=== PATIENT | male | born 1945 | race Hispanic/Latino ===

== ENCOUNTER 2018-11-27 12:22 | Inpatient (IN) | payer MEDICARE ==
[2018-11-27 12:40] VITALS: BMI 22.5
[2018-11-27] MEDS ORDERED: Sodium Chloride 0.9% 500 ML IV STA (13:16)
--- NOTE | 2018-11-27 13:17 | ED PDOC ---
Arrival/HPI - General Chief Complaint: Male Genitourinary Time Seen by Provider: 11/27/18 12:57 Historian: Patient - History of Present Illness Narrative History of Present Illness (Text): 11/27/18 13:18 73 year old male, with past medical history of AAA, presents to the ED for evaluation of polyuria since last . Patient states he has been experiencing increased urination throughout the day, associated with mild abdomi nal pain. Patient denies any fevers, chills, headache, dizziness, chest pain, shortness of breath, dyspnea on exertion, cough, diaphoresis, dysuria, hematuria, nausea, vomiting, diarrhea, back pain, neck pain, or any other complaints. Time/Duration: < week Symptom Onset: Gradual Symptom Course: Unchanged Activities at Onset: Light Context: Home Past Medical History - Provider Review Nursing Documentation Reviewed: Yes - Infectious Disease Hx of Infectious Diseases: None - Tetanus Immunization Tetanus Immunization: Unknown - Gastrointestinal Other/Comment: AAA - Psychiatric Hx Depression: No Hx Emotional Abuse: No Hx Physical Abuse: No Hx Substance Use: No - Surgical History Hx Cholecystectomy: Yes Hx Tonsillectomy: Yes - Anesthesia Hx Anesthesia: Yes Hx Anesthesia Reactions: No Hx Malignant Hyperthermia: No - Suicidal Assessment Feels Threatened In Home Enviroment: No Family/Social History - Physician Review Nursing Documentation Reviewed: Yes Family/Social History: Unknown Family HX Smoking Status: Never Smoked Hx Alcohol Use: Yes Frequency of alcohol use: Socially Hx Substance Use: No Hx Substance Use Treatment: No Allergies/Home Meds Allergies/Adverse Reactions: Allergies No Known Allergies Allergy (Verified 11/27/18 12:40) Home Medications: Home Meds Medication Instructions Recorded Confirmed Tamsulosin [Flomax] 1 cap PO DAILY 11/27/18 11/27/18 Review of Systems - Physician Review All systems were reviewed & negative as marked: Yes - Review of Systems Constitutional: absent: Fevers Eyes: absent: Vision Changes Respiratory: absent: SOB, Cough Cardiovascular: absent: Chest Pain Gastrointestinal: Abdominal Pain. absent: Diarrhea, Nausea, Vomiting Genitourinary Male: absent: Dysuria, Hematuria, Urinary Output Changes Musculoskeletal: absent: Back Pain, Neck Pain Skin: absent: Rash Neurological: absent: Headache, Dizziness, Focal Weakness Endocrine: Polyuria. absent: Diaphoresis Psychiatric: absent: Anxiety Physical Exam - Physical Exam Narrative Physical Exam (Text): 11/27/18 13:22 Gen: VS reviewed, alert, well developed, well nourished, nontoxic, mild distress. ENT: normal pharynx. Eye: EOMI, PERRL. Neck: no JVD, supple, no adenopathy. CV: regular rate, regular rhythm, no rubs, no murmur, no gallops, S1, S2, pulses equal and strong. Pulm: no distress, clear to auscultation, no wheeze, no rhonchi, breath sounds equal, no rales. Abd: soft, nontender, no guarding, no rebound, no rigidity, normal bowel sounds. Mild bilateral CVA tenderness. Ext: no edema. Skin: good color, no rash, no cyanosis. Psych: responds appropriately to questions, normal affect. Neuro: oriented x 3, CN2-12 intact grossly, motor intact, sensation intact. Vital Signs Reviewed: Yes Vital Signs Temp Pulse Resp BP Pulse Ox 11/27/18 12:43 97.4 F L 81 18 131/80 96 Temperature: Afebrile Blood Pressure: Normal Pulse: Regular Respiratory Rate: Normal Appearance: Positive for: Well-Appearing, Non-Toxic, Comfortable Pain Distress: Mild Mental Status: Positive for: Alert and Oriented X 3 Medical Decision Making ED Course and Treatment: 11/27/18 13:16 Impression: 73 year old male presents to the ED for evaluation of polyuria. Plan: -- CT Abdomen/Pelvis -- Labs -- IV Fluids -- Urine Culture -- Urinalysis -- Reassess and disposition Prior Visits: Notes and results from previous visits were reviewed. Progress Notes: 11/27/18 15:[address] serrato to this service. patient to be admitted for syncopal event as reported by dr. serrato. patient reports the other day felt dizzy/lightheaded, had a fall to the ground and had difficulty getting up,no head trauma. patient denies any chest pain, no dyspnea, acute abdominal pain. the flank pain appreciated on physical exam likely from bilateral hydronephrosis caused by urine retention. consult to urology dr. brent pérez for urine retention - RAD Interpretation Narrative RAD Interpretations (Text): 11/27/18 14:56 CT Abdomen/Pelvis reviewed by radiologist, shows: FINDINGS: LOWER THORAX: There is an infiltrate in the periphery of the right lower lobe LIVER: Unremarkable. No gross lesion or ductal dilatation. GALLBLADDER AND BILE DUCTS: Gallbladder removed PANCREAS: Unremarkable. No gross lesion or ductal dilatation. SPLEEN: Unremarkable. ADRENALS: Unremarkable. No mass. KIDNEYS AND URETERS: Unremarkable. No hydronephrosis. No solid mass. VASCULATURE: Unremarkable. No aortic aneurysm. No aortic atherosclerotic calcification or mural plaque present. BOWEL: Unremarkable. No obstruction. No gross mural thickening. APPENDIX: Unremarkable. Normal appendix. PERITONEUM: Unremarkable. No free fluid. No free air. LYMPH NODES: Unremarkable. No enlarged lymph nodes. BLADDER: There is severe thickening of the bladder. Both ureters are dilated especially on the right measuring 19 mm in diameter distally. There is severe right-sided hydronephrosis and mild left-sided hydronephrosis. REPRODUCTIVE: The prostate is enlarged measuring 71 mm in diameter. BONES: No acute fracture. OTHER FINDINGS: None. IMPRESSION: Severe hydronephrosis right greater than left. No evidence of ureteral stone. Severe thickening of the bladder. Severely enlarged prostate Radiology Orders: 11/27/18 13:16 ABDOMEN & PELVIS [ABD & PELVIS W/O PO OR IV CONT] [CT] [employer] Support Specialist: Radiologist - EKG Interpretation EKG Interpretation (Text): 11/27/18 18:42 EKG shows NSR at 78 BPM, no specific intraventricular block, no acute ST/T wave abnormalities. Interpreted by me. Interpreted by ED Physician: Yes Type: 12 lead EKG - Medication Orders Current Medication Orders: Sodium Chloride (Sodium Chloride 0.9%) 500 mls @ 999 mls/hr IV .Q31M STA Stop: 11/27/18 13:46 Procedures - Time-Out Type of Procedure: barraza catheter insertion Correct Procedure: Yes Physician Name: tyson - Additional Procedures Progress: a [address] was placed. sterile technique, anesthetized with viscous lidocaine, the catheter advanced easily past the urethral meatus, some resistance was met but the catheter advanced smoothly beyond the expected level of the prostate, good urine flow observed. at the level of the resistance there was some blood return within the urethra and in the urine. there was no persistent pain during the procedure or while the balloon was inflated. patient tolerated procedure well. - Scribe Statement The provider has reviewed the documentation as recorded by the Scribe Krissy Musa. All medical record entries made by the Scribe were at my direction and personally dictated by me. I have reviewed the chart and agree that the record accurately reflects my personal performance of the history, physical exam, medical decision making, and the department course for this patient. I have also personally directed, reviewed, and agree with the discharge instructions and disposition. Disposition/Present on Arrival - Present on Arrival Any Indicators Present on Arrival: No History of DVT/PE: No History of Uncontrolled Diabetes: No Urinary Catheter: No History of Decub. Ulcer: No History Surgical Site Infection Following: None - Disposition Have Diagnosis and Disposition been Completed?: Yes Diagnosis: Urine retention, Syncope, Pyelonephritis Disposition: HOSPITALIZED Disposition Time: 15:46 Patient Plan: Admission Patient Problems: Current Active Problems Problem Status Onset Urine retention Acute Syncope Acute Pyelonephritis Acute Condition: GUARDED
[2018-11-27 14:19] LABS: BASO # 0.01 K/mm3 (0.0-2.0); BASO % 0.1 % (0.0-3.0); HEMOGLOBIN 13.5 g/dL (14.0-18.0); LYMPH # 1.4 (1.2-3.4); MEAN CELL VOLUME 91.6 fl (80.0-105.0); MEAN CORPUSCULAR HEMOGLOBIN 30.8 pg (25.0-35.0); MEAN CORPUSCULAR HGB CONC 33.6 g/dl (31.0-37.0); MEAN PLATELET VOLUME 10.1 fl (7.0-11.0); MONO # 0.8 (0.1-0.6); MONO % 8.5 % (1.0-6.0); RBC 4.39 10^6/uL (3.5-6.1); WHITE BLOOD COUNT 9.2 10^3/uL (4.5-11.0)
[2018-11-27 14:25] LABS: ALB/GLOB RATIO 1.2 (1.1-1.8); ALBUMIN 3.8 g/dL (3.0-4.8); CALCIUM 9.3 mg/dL (8.4-10.5)
--- NOTE | 2018-11-27 14:54 | CT ---
Date of service: 11/27/2018 PROCEDURE: CT Abdomen and Pelvis without intravenous contrast HISTORY: flank pain COMPARISON: None. TECHNIQUE: Without contrast.. Contrast dose: Radiation dose: Total exam DLP = 620.34 mGy-cm. This CT exam was performed using one or more of the following dose reduction techniques: Automated exposure control, adjustment of the mA and/or kV according to patient size, and/or use of iterative reconstruction technique. FINDINGS: LOWER THORAX: There is an infiltrate in the periphery of the right lower lobe LIVER: Unremarkable. No gross lesion or ductal dilatation. GALLBLADDER AND BILE DUCTS: Gallbladder removed PANCREAS: Unremarkable. No gross lesion or ductal dilatation. SPLEEN: Unremarkable. ADRENALS: Unremarkable. No mass. KIDNEYS AND URETERS: Unremarkable. No hydronephrosis. No solid mass. VASCULATURE: Unremarkable. No aortic aneurysm. No aortic atherosclerotic calcification or mural plaque present. BOWEL: Unremarkable. No obstruction. No gross mural thickening. APPENDIX: Unremarkable. Normal appendix. PERITONEUM: Unremarkable. No free fluid. No free air. LYMPH NODES: Unremarkable. No enlarged lymph nodes. BLADDER: There is severe thickening of the bladder. Both ureters are dilated especially on the right measuring 19 mm in diameter distally. There is severe right-sided hydronephrosis and mild left-sided hydronephrosis. REPRODUCTIVE: The prostate is enlarged measuring 71 mm in diameter. BONES: No acute fracture. OTHER FINDINGS: None. IMPRESSION: Severe hydronephrosis right greater than left. No evidence of ureteral stone. Severe thickening of the bladder. Severely enlarged prostate
[2018-11-27 15:39] LABS: URINE BILIRUBIN NEGATIVE (NEGATIVE); URINE BLOOD LARGE (NEGATIVE); URINE GLUCOSE (UA) NEGATIVE (NEGATIVE); URINE LEUKOCYTE ESTERASE LARGE Leu/uL (NEGATIVE); URINE PROTEIN 100 mg/dL (<30 mg/dL); URINE UROBILINOGEN 0.2 E.U./dL (<1 E.U./dL)
[2018-11-27 15:40] LABS: URINE APPEARANCE CLOUDY (CLEAR); URINE COLOR YELLOW (YELLOW)
[2018-11-27] MEDS ORDERED: Lidocaine 2% Jelly (Uro-Jet) TOP ONE (15:40)
[2018-11-27 15:42] LABS: URINE BACTERIA MANY /hpf; URINE RBC 15 - 20 /hpf (0-2); URINE WBC TNTC /hpf (0-6)
[2018-11-27] MEDS ORDERED: cefTRIAXone 1 GM/100 ML BAG IVPB STA (16:57)
--- NOTE | 2018-11-27 17:53 | CARD ---
APPROVED REPORT Date of service: 11/27/2018 EKG Measurement Heart [id number] AK [id number] [id number] <Conclusion> Normal sinus rhythm Left axis deviation Nonspecific intraventricular block NDSTT abnormalities Abnormal ECG
[2018-11-27] MEDS ORDERED: Lactated Ringer's 1,000 ML IV SCH (21:45)
[2018-11-27] MEDS: Lactated Ringer's 1,000 ML IV SCH ×2 (21:57→23:45)
[2018-11-27] MEDS ORDERED: Influenza Vaccine 60 mcg/0.5 mL SYR (4YR UP) IM ONE (21:59)
[2018-11-27] MEDS ORDERED: Pneumococcal 23-Valent Vaccine IM ONE (21:59)
[2018-11-27] MEDS ORDERED: Ciprofloxacin 400mg/200ml D5W 400 MG/200 ML BAG IVPB SCH (22:00)
[2018-11-27 22:17] LABS: VENOUS BLOOD GAS BASE EXCESS -0.2 mmol/L (0.0-2.0); VENOUS BLOOD GAS PO2 60 mm/Hg (30-55)
[2018-11-27] MEDS ORDERED: Sodium Chloride 0.9% 1,000 ML IV STA (23:17)
[2018-11-27] MEDS: Sodium Chloride 0.9% 1,000 ML IV SCH (23:41)
[2018-11-28 00:04] LABS: HEMOGLOBIN 12.3 g/dL (14.0-18.0); LYMPH # 0.2 (1.2-3.4); LYMPH % 2.9 % (22.0-35.0); MEAN CELL VOLUME 90.3 fl (80.0-105.0); MEAN CORPUSCULAR HEMOGLOBIN 30.6 pg (25.0-35.0); MEAN CORPUSCULAR HGB CONC 33.9 g/dl (31.0-37.0); MEAN PLATELET VOLUME 10.1 fl (7.0-11.0); MONO # 0.3 (0.1-0.6); MONO % 4.1 % (1.0-6.0); PLATELET COUNT 71 10^3/uL (120.0-450.0); RBC 4.02 10^6/uL (3.5-6.1); RED CELL DISTRIBUTION WIDTH 12.8 % (11.5-14.5); WHITE BLOOD COUNT 7.3 10^3/uL (4.5-11.0)
[2018-11-28 00:48] LABS: ALB/GLOB RATIO 1.1 (1.1-1.8); ALBUMIN 2.8 g/dL (3.0-4.8); CALCIUM 8.5 mg/dL (8.4-10.5)
[2018-11-28] MEDS ORDERED: Potassium Chloride 40 mEq/30 ml LIQ UD PO ONE (01:01)
[2018-11-28 01:06] LABS: NEUTROPHIL 79 % (50.0-70.0)
[2018-11-28 01:07] LABS: BAND 11 % (0-2); LYMPHOCYTE 4 % (22.0-35.0)
[2018-11-28 01:08] LABS: MONOCYTE 6 % (1.0-6.0); PLATELET ESTIMATE LOW (NORMAL); TOXIC GRANULATION SLIGHT
[2018-11-28 01:47] LABS: VENOUS BLOOD GAS BASE EXCESS -0.3 mmol/L (0.0-2.0); VENOUS BLOOD GAS PO2 62 mm/Hg (30-55); VENOUS BLOOD PH 7.46 (7.32-7.43)
--- NOTE | 2018-11-28 06:22 | PCM.SEPTIC ---
Sepsis Progress Note - Reassessment Type Date of Evaluation: 11/28/18 Time of Evaluation: 05:00 Reassessment Type: Non-invasive reassessment - Non Invasive Reassessment Were the most recent vital sign reviewed: Yes Vital Sign (Latest): Temp Pulse Resp BP Pulse Ox 97.7 F 83 18 96/58 L 95 11/28/18 00:00 11/28/18 02:00 11/28/18 00:00 11/28/18 00:00 11/28/18 00:00 Cardiovascular: Yes: Regular Rate, Rhythm. No: Edema, Gallop, Murmur Respiratory: Yes: Normal Breath Sounds. No: Accessory Muscle Use, Rales, Rhonchi, Stridor, Wheezing Capillary Refill: Normal (Less than 2 sec) Pulses: Normal Radial, Normal Dorsalis Pedis, Normal Posterior Tibialis Skin: Warm - Invasive Reassessment (complete 2 of 4) Was a Central Venous Pressure Measurement obtained within 6 Hours after the presentation of septic shock: No Was a central venous oxygen measurement obtained within 6 hours after the presentation of septic shock: No Was a bedside cardiovascular ultrasound performed within 6 hours after the presentation of septic shock: No Was a passive leg raise performed or was a fluid challenge performed within 6 hrs of the initial fluid bolus: No Passive Leg Raise Result: Not Applicable Fluid Challenge performed: No
[2018-11-28] MEDS ORDERED: Morphine 2 mg/ml ISec IVP STA (06:34)
[2018-11-28 07:36] LABS: HEMOGLOBIN 11.9 g/dL (14.0-18.0); LYMPH # 0.3 (1.2-3.4); LYMPH % 2.3 % (22.0-35.0); MEAN CORPUSCULAR HEMOGLOBIN 30.4 pg (25.0-35.0); MEAN CORPUSCULAR HGB CONC 33.4 g/dl (31.0-37.0); MEAN PLATELET VOLUME 10.3 fl (7.0-11.0); MONO % 7.1 % (1.0-6.0); RBC 3.91 10^6/uL (3.5-6.1); RED CELL DISTRIBUTION WIDTH 13.1 % (11.5-14.5); WHITE BLOOD COUNT 14.6 10^3/uL (4.5-11.0)
[2018-11-28 07:48] LABS: ALBUMIN 2.5 g/dL (3.0-4.8); CALCIUM 8.3 mg/dL (8.4-10.5)
--- NOTE | 2018-11-28 09:09 | RAD ---
Date of service: 11/27/2018 HISTORY: sepsis COMPARISON: No prior. TECHNIQUE: 1 view obtained. FINDINGS: LUNGS: No active pulmonary disease. PLEURA: No significant pleural effusion identified, no pneumothorax apparent. CARDIOVASCULAR: No aortic atherosclerotic calcification present. Normal cardiac size. No pulmonary vascular congestion. OSSEOUS STRUCTURES: No significant abnormalities. VISUALIZED UPPER ABDOMEN: Normal. OTHER FINDINGS: None. IMPRESSION: No active disease.
[2018-11-28] MEDS ORDERED: Oxycodone/Acetaminophen 5/325 mg Tab PO PRN (09:14)
[2018-11-28] MEDS: cefTRIAXone 1 gm 1 GM/100 ML BAG IVPB SCH (09:39)
[2018-11-28] MEDS ORDERED: Lidocaine 2% Jelly (Uro-Jet) TOP ONE (10:20)
--- NOTE | 2018-11-28 11:32 | CP.PCM.CON ---
<Edgard Snyder - Last Filed: 11/28/18 11:29> History of Present Illness - History of Present Illness History of Present Illness: Edgard Snyder D.O. PGY-3, Internal Medicine Resident, Infectious Disease Consultation Note 73-year-old male with a past medical history of AAA who presents for complaints of urinary frequency. Infectious disease consultation was requested for sepsis. Patient was seen and examined at bedside. Patient relates how he was having to go to the bathroom "50 to 100 times "daily and only was getting small amounts out. Patient states that that was his only complaint except possibly some malaise. Denies any fevers, chills, nausea, vomiting, diarrhea, constipation, lightheadedness, head ache, chest pain, shortness of breath or any other wor risome signs. Denies any sick contacts. Denies any recent travel. States that he is otherwise healthy except for the AAA which he just gets monitoring for. Review of Systems - Review of Systems All systems: reviewed and no additional remarkable complaints except (as per HPI) Past Patient History - Infectious Disease Hx of Infectious Diseases: None - Tetanus Immunizations Tetanus Immunization: Unknown - Past Social History Smoking Status: Never Smoked - CARDIAC Hx Cardiac Disorders: Yes Hx Hypertension: Yes - PULMONARY Hx Respiratory Disorders: No - NEUROLOGICAL Hx Neurological Disorder: Yes Hx Dizziness: Yes (SYNCOPE) - HEENT Hx HEENT Problems: Yes (TONSILLECTOMY) - RENAL Hx Chronic Kidney Disease: Yes (BILATERAL HYDRONEPHROSIS 11-27-18) Hx Kidney Stones: Yes Hx Pyelonephritis: Yes - ENDOCRINE/METABOLIC Hx Endocrine Disorders: No - HEMATOLOGICAL/ONCOLOGICAL Hx Blood Disorders: No - INTEGUMENTARY Hx Dermatological Problems: Yes Other/Comment: 11-27-18 PERIRECTAL AREA IS RAW, AND RED. EXTENDS IN BETWEEN BUTTOCKS ,PROSTATE TESTICLES. PT IS HAVING DIARRHEA. SOME INCONTINENCY OF URINE. BILATERAL LE VARICOSITIES - MUSCULOSKELETAL/RHEUMATOLOGICAL Hx Musculoskeletal Disorders: Yes Hx Falls: Yes Hx Unsteady Gait: Yes - GASTROINTESTINAL Hx Gastrointestinal Disorders: Yes (INGUINAL HERNIA REPAIR) Hx Gall Bladder Disease: Yes (CHOLECYSTECTOMY) Other/Comment: AAA - GENITOURINARY/GYNECOLOGICAL Hx Genitourinary Disorders: Yes Hx Hematuria: Yes Hx Prostate Problems: Yes (ENLARGED) Hx Urinary Tract Infection: Yes - PSYCHIATRIC Hx Psychophysiologic Disorder: No Hx Depression: No Hx Emotional Abuse: No Hx Physical Abuse: No Hx Substance Use: No - SURGICAL HISTORY Hx Surgeries: Yes (TONSILLECTOMY) Hx Cholecystectomy: Yes - ANESTHESIA Hx Anesthesia: Yes Hx Anesthesia Reactions: No Hx Malignant Hyperthermia: No Meds Allergies/Adverse Reactions: Allergies Allergy/AdvReac Type Severity Reaction Status Date / Time No Known Allergies Allergy Verified 11/27/18 19:57 - Medications Medications: Current Medications Acetaminophen (Tylenol 325mg Tab) 650 mg PO Q6H PRN PRN Reason: Fever >100.4 F Sodium Chloride (Sodium Chloride 0.9%) 1,000 mls @ 100 mls/hr IV .Q10H [facility] Last Admin: 11/27/18 23:41 Dose: 100 mls/hr Ceftriaxone Sodium (Rocephin 1 Gram Ivpb) 1 gm in 100 mls @ 100 mls/hr IVPB DAILY [facility]; Protocol Stop: 12/05/18 10:01 Last Admin: 11/28/18 09:39 Dose: 100 mls/hr Oxycodone/Acetaminophen (Percocet 5/325 Mg Tab) 1 tab PO Q6H PRN PRN Reason: Pain, moderate (4-7) Stop: 12/01/18 09:15 Last Admin: 11/28/18 09:38 Dose: 1 tab Tamsulosin HCl (Flomax) 0.4 mg PO BID [facility] Last Admin: 11/28/18 09:39 Dose: 0.4 mg Tramadol HCl (Ultram) 50 mg PO Q6 PRN PRN Reason: Pain, moderate (4-7) Last Admin: 11/28/18 05:04 Dose: 50 mg Physical Exam - Constitutional Appears: Non-toxic, No Acute Distress - Head Exam Head Exam: ATRAUMATIC, NORMOCEPHALIC - Eye Exam Eye Exam: EOMI. absent: Scleral icterus - ENT Exam ENT Exam: Mucous Membranes Moist, Normal Oropharynx - Neck Exam Neck exam: Positive for: Normal Inspection - Respiratory Exam Respiratory Exam: Clear to Auscultation Bilateral. absent: Rales, Rhonchi, Wheezes - Cardiovascular Exam Cardiovascular Exam: RRR, +S1, +S2. absent: Gallop, Rubs - GI/Abdominal Exam GI & Abdominal Exam: Normal Bowel Sounds, Soft. absent: Tenderness - Exam Additional comments: suprapubic tenderness, barraza in place with almost no urine and what is present is red - Neurological Exam Neurological exam: Alert, Oriented x3 - Psychiatric Exam Psychiatric exam: Normal Affect, Normal Mood - Skin Skin Exam: Dry, Warm Results - Vital Signs Recent Vital Signs: Last Vital Signs Temp 97.8 F 11/28/18 08:23 Pulse 76 11/28/18 08:23 Resp 20 11/28/18 08:23 BP 101/62 11/28/18 08:23 Pulse Ox 94 L 11/28/18 08:23 - Labs Result Diagrams: 11/28/18 07:00 11/28/18 07:00 Labs: Laboratory Results - last 24 hr 11/27/18 11/27/18 11/27/18 14:00 14:00 15:35 WBC 9.2 RBC 4.39 Hgb 13.5 L Hct 40.2 L MCV 91.6 MCH 30.8 MCHC 33.6 RDW 13.0 Plt Count 102 L MPV 10.1 Neut % (Auto) 76.4 H Lymph % (Auto) 15.[address] [place] % (Auto) 8.5 H Eos % (Auto) 0.0 L Baso % (Auto) 0.1 Lymph # (Auto) 1.4 [place] # (Auto) 0.8 H Eos # (Auto) 0.0 Baso # (Auto) 0.01 Absolute Neuts (auto) 7.05 H Neutrophils % (Manual) Band Neutrophils % Lymphocytes % (Manual) Monocytes % (Manual) Toxic Granulation Platelet Evaluation pO2 VBG pH VBG pCO2 VBG HCO3 VBG Total CO2 VBG O2 Sat (Calc) VBG Base Excess VBG Potassium Glucose Lactate FiO2 Crit Value Called To Crit Value Called By Blood Gas Notified Time Sodium 130 L Potassium 4.0 Chloride 93 L Carbon Dioxide 29 Anion Gap 12 BUN 32 H Creatinine 1.5 Est GFR ( Amer) 55 Est GFR (Non-Af Amer) 46 POC Glucose (mg/dL) Random Glucose 124 H Calcium 9.3 Total Bilirubin 1.2 AST 72 H D ALT 48 Alkaline Phosphatase 53 Total Protein 7.0 Albumin 3.8 Globulin 3.2 Albumin/Globulin Ratio 1.2 Prostate Specific Ag Venous Blood Potassium Urine Color Yellow Urine Appearance Cloudy Urine pH 6.0 Ur Specific [place] 1.020 Urine Protein 100 H Urine Glucose (UA) Negative Urine Ketones Trace H Urine Blood Large H Urine Nitrate Positive H Urine Bilirubin Negative Urine Urobilinogen 0.2 Ur Leukocyte Esterase Large H Urine RBC 15 - 20 H Urine WBC Tntc H Urine Bacteria Many 11/27/18 11/27/18 11/27/18 22:00 22:30 23:35 WBC 7.3 D RBC 4.02 Hgb 12.3 L Hct 36.3 L MCV 90.3 MCH 30.6 MCHC 33.9 RDW 12.8 Plt Count 71 L MPV 10.1 Neut % (Auto) 93.0 H Lymph % (Auto) 2.[address] [place] % (Auto) 4.1 Eos % (Auto) 0.0 L Baso % (Auto) 0.0 Lymph # (Auto) 0.[address] [place] # (Auto) 0.3 Eos # (Auto) 0.0 Baso # (Auto) 0.00 Absolute Neuts (auto) 6.76 H Neutrophils % (Manual) 79 H Band Neutrophils % 11 H* Lymphocytes % (Manual) 4 L Monocytes % (Manual) 6 Toxic Granulation Slight Platelet Evaluation Low pO2 60 H VBG pH 7.50 H VBG pCO2 28.0 L VBG HCO3 21.8 VBG Total CO2 22.7 VBG O2 Sat (Calc) 96.0 H VBG Base Excess -0.2 L VBG Potassium 3.5 L Glucose 117 H Lactate 3.1 H FiO2 21.0 Crit Value Called To Soumya mercer Crit Value Called By Etq Blood Gas Notified Time 2216 Sodium 131.0 L Potassium Chloride 97.0 L Carbon Dioxide Anion Gap BUN Creatinine Est GFR ( Amer) Est GFR (Non-Af Amer) POC Glucose (mg/dL) 117 H Random Glucose Calcium Total Bilirubin AST ALT Alkaline Phosphatase Total Protein Albumin Globulin Albumin/Globulin Ratio Prostate Specific Ag Venous Blood Potassium 3.5 L Urine Color Urine Appearance Urine pH Ur Specific [place] Urine Protein Urine Glucose (UA) Urine Ketones Urine Blood Urine Nitrate Urine Bilirubin Urine Urobilinogen Ur Leukocyte Esterase Urine RBC Urine WBC Urine Bacteria 11/27/18 11/28/18 11/28/18 23:35 01:28 04:47 WBC RBC Hgb Hct MCV MCH MCHC RDW Plt Count MPV Neut % (Auto) Lymph % (Auto) [place] % (Auto) Eos % (Auto) Baso % (Auto) Lymph # (Auto) [place] # (Auto) Eos # (Auto) Baso # (Auto) Absolute Neuts (auto) Neutrophils % (Manual) Band Neutrophils % Lymphocytes % (Manual) Monocytes % (Manual) Toxic Granulation Platelet Evaluation pO2 62 H VBG pH 7.46 H VBG pCO2 32.0 L VBG HCO3 22.8 VBG Total CO2 23.8 VBG O2 Sat (Calc) 95.8 H VBG Base Excess -0.3 L VBG Potassium 3.0 L Glucose 130 H Lactate 1.7 FiO2 21.0 Crit Value Called To Crit Value Called By Blood Gas Notified Time Sodium 131 L 131.0 L Potassium 3.1 L Chloride 98 100.0 Carbon Dioxide 25 Anion Gap 11 BUN 34 H Creatinine 1.5 Est GFR ( Amer) 55 Est GFR (Non-Af Amer) 46 POC Glucose (mg/dL) 138 H Random Glucose 132 H Calcium 8.5 Total Bilirubin 0.9 AST 63 H ALT 47 Alkaline Phosphatase 61 Total Protein 5.3 L Albumin 2.8 L Globulin 2.5 Albumin/Globulin Ratio 1.1 Prostate Specific Ag Venous Blood Potassium 3.0 L Urine Color Urine Appearance Urine pH Ur Specific [place] Urine Protein Urine Glucose (UA) Urine Ketones Urine Blood Urine Nitrate Urine Bilirubin Urine Urobilinogen Ur Leukocyte Esterase Urine RBC Urine WBC Urine Bacteria 11/28/18 11/28/18 11/28/18 07:00 07:00 07:00 WBC 14.6 H D RBC 3.91 Hgb 11.9 L Hct 35.6 L MCV 91.0 MCH 30.4 MCHC 33.4 RDW 13.1 Plt Count 69 L MPV 10.3 Neut % (Auto) 90.6 H Lymph % (Auto) 2.[address] [place] % (Auto) 7.1 H Eos % (Auto) 0.0 L Baso % (Auto) 0.0 Lymph # (Auto) 0.[address] # (Auto) 1.0 H Eos # (Auto) 0.0 Baso # (Auto) 0.00 Absolute Neuts (auto) 13.23 H Neutrophils % (Manual) Band Neutrophils % Lymphocytes % (Manual) Monocytes % (Manual) Toxic Granulation Platelet Evaluation pO2 VBG pH VBG pCO2 VBG HCO3 VBG Total CO2 VBG O2 Sat (Calc) VBG Base Excess VBG Potassium Glucose Lactate FiO2 Crit Value Called To Crit Value Called By Blood Gas Notified Time Sodium 135 Potassium 4.3 Chloride 102 Carbon Dioxide 25 Anion Gap 12 BUN 36 H Creatinine 1.6 H Est GFR ( Amer) 51 Est GFR (Non-Af Amer) 42 POC Glucose (mg/dL) Random Glucose 123 H Calcium 8.3 L Total Bilirubin 0.6 AST 62 H ALT 43 Alkaline Phosphatase 55 Total Protein 5.1 L Albumin 2.5 L Globulin 2.6 Albumin/Globulin Ratio 1.0 L Prostate Specific Ag 54.2 H Venous Blood Potassium Urine Color Urine Appearance Urine pH Ur Specific [place] Urine Protein Urine Glucose (UA) Urine Ketones Urine Blood Urine Nitrate Urine Bilirubin Urine Urobilinogen Ur Leukocyte Esterase Urine RBC Urine WBC Urine Bacteria Assessment & Plan - Assessment and Plan (Free Text) Assessment: 73-year-old male with a past medical history of AAA who presents for complaints of urinary frequency. Infectious disease consultation was requested for sepsis. Plan: Sepsis with fever, tachycardia, tachypnea, and leukocytosis likely from a urinary source and/or prostatitis Urinary retention Urinary frequency Enlarged prostate AAA T-max of 103 yesterday at 2200 Clinically appears to be improving Currently on ceftriaxone Blood cultures pending Urine cultures pending Urology to evaluate the patient Discussed with nursing staff We will follow with you Patient was seen and examined and case to be discussed with attending physician Thank you for the pleasure participating in the care of this interesting patient - Date & Time Date: 11/28/18 Time: 09:10 <Otf Villarreal - Last Filed: 11/28/18 12:08> Meds - Medications Medications: Current Medications Acetaminophen (Tylenol 325mg Tab) 650 mg PO Q6H PRN PRN Reason: Fever >100.4 F Sodium Chloride (Sodium Chloride 0.9%) 1,000 mls @ 100 mls/hr IV .Q10H [facility] Last Admin: 11/27/18 23:41 Dose: 100 mls/hr Ceftriaxone Sodium (Rocephin 1 Gram Ivpb) 1 gm in 100 mls @ 100 mls/hr IVPB DAILY [facility]; Protocol Stop: 12/05/18 10:01 Last Admin: 11/28/18 09:39 Dose: 100 mls/hr Oxycodone/Acetaminophen (Percocet 5/325 Mg Tab) 1 tab PO Q6H PRN PRN Reason: Pain, moderate (4-7) Stop: 12/01/18 09:15 Last Admin: 11/28/18 09:38 Dose: 1 tab Tamsulosin HCl (Flomax) 0.4 mg PO BID [facility] Last Admin: 11/28/18 09:39 Dose: 0.4 mg Tramadol HCl (Ultram) 50 mg PO Q6 PRN PRN Reason: Pain, moderate (4-7) Last Admin: 11/28/18 05:04 Dose: 50 mg Results - Vital Signs Recent Vital Signs: Last Vital Signs Temp 97.8 F 11/28/18 08:23 Pulse 76 11/28/18 08:23 Resp 20 11/28/18 08:23 BP 101/62 11/28/18 08:23 Pulse Ox 94 L 11/28/18 08:23 - Labs Result Diagrams: 11/28/18 07:00 11/28/18 07:00 Labs: Laboratory Results - last 24 hr 11/27/18 11/27/18 11/27/18 14:00 14:00 15:35 WBC 9.2 RBC 4.39 Hgb 13.5 L Hct 40.2 L MCV 91.6 MCH 30.8 MCHC 33.6 RDW 13.0 Plt Count 102 L MPV 10.1 Neut % (Auto) 76.4 H Lymph % (Auto) 15.[address] % (Auto) 8.5 H Eos % (Auto) 0.0 L Baso % (Auto) 0.1 Lymph # (Auto) 1.4 [place] # (Auto) 0.8 H Eos # (Auto) 0.0 Baso # (Auto) 0.01 Absolute Neuts (auto) 7.05 H Neutrophils % (Manual) Band Neutrophils % Lymphocytes % (Manual) Monocytes % (Manual) Toxic Granulation Platelet Evaluation pO2 VBG pH VBG pCO2 VBG HCO3 VBG Total CO2 VBG O2 Sat (Calc) VBG Base Excess VBG Potassium Glucose Lactate FiO2 Crit Value Called To Crit Value Called By Blood Gas Notified Time Sodium 130 L Potassium 4.0 Chloride 93 L Carbon Dioxide 29 Anion Gap 12 BUN 32 H Creatinine 1.5 Est GFR ( Amer) 55 Est GFR (Non-Af Amer) 46 POC Glucose (mg/dL) Random Glucose 124 H Calcium 9.3 Total Bilirubin 1.2 AST 72 H D ALT 48 Alkaline Phosphatase 53 Total Protein 7.0 Albumin 3.8 Globulin 3.2 Albumin/Globulin Ratio 1.2 Prostate Specific Ag Venous Blood Potassium Urine Color Yellow Urine Appearance Cloudy Urine pH 6.0 Ur Specific [place] 1.020 Urine Protein 100 H Urine Glucose (UA) Negative Urine Ketones Trace H Urine Blood Large H Urine Nitrate Positive H Urine Bilirubin Negative Urine Urobilinogen 0.2 Ur Leukocyte Esterase Large H Urine RBC 15 - 20 H Urine WBC Tntc H Urine Bacteria Many 11/27/18 11/27/18 11/27/18 22:00 22:30 23:35 WBC 7.3 D RBC 4.02 Hgb 12.3 L Hct 36.3 L MCV 90.3 MCH 30.6 MCHC 33.9 RDW 12.8 Plt Count 71 L MPV 10.1 Neut % (Auto) 93.0 H Lymph % (Auto) 2.[address] % (Auto) 4.1 Eos % (Auto) 0.0 L Baso % (Auto) 0.0 Lymph # (Auto) 0.[address] # (Auto) 0.3 Eos # (Auto) 0.0 Baso # (Auto) 0.00 Absolute Neuts (auto) 6.76 H Neutrophils % (Manual) 79 H Band Neutrophils % 11 H* Lymphocytes % (Manual) 4 L Monocytes % (Manual) 6 Toxic Granulation Slight Platelet Evaluation Low pO2 60 H VBG pH 7.50 H VBG pCO2 28.0 L VBG HCO3 21.8 VBG Total CO2 22.7 VBG O2 Sat (Calc) 96.0 H VBG Base Excess -0.2 L VBG Potassium 3.5 L Glucose 117 H Lactate 3.1 H FiO2 21.0 Crit Value Called To Soumya mercer Crit Value Called By Etq Blood Gas Notified Time 2216 Sodium 131.0 L Potassium Chloride 97.0 L Carbon Dioxide Anion Gap BUN Creatinine Est GFR ( Amer) Est GFR (Non-Af Amer) POC Glucose (mg/dL) 117 H Random Glucose Calcium Total Bilirubin AST ALT Alkaline Phosphatase Total Protein Albumin Globulin Albumin/Globulin Ratio Prostate Specific Ag Venous Blood Potassium 3.5 L Urine Color Urine Appearance Urine pH Ur Specific [place] Urine Protein Urine Glucose (UA) Urine Ketones Urine Blood Urine Nitrate Urine Bilirubin Urine Urobilinogen Ur Leukocyte Esterase Urine RBC Urine WBC Urine Bacteria 11/27/18 11/28/18 11/28/18 23:35 01:28 04:47 WBC RBC Hgb Hct MCV MCH MCHC RDW Plt Count MPV Neut % (Auto) Lymph % (Auto) [place] % (Auto) Eos % (Auto) Baso % (Auto) Lymph # (Auto) [place] # (Auto) Eos # (Auto) Baso # (Auto) Absolute Neuts (auto) Neutrophils % (Manual) Band Neutrophils % Lymphocytes % (Manual) Monocytes % (Manual) Toxic Granulation Platelet Evaluation pO2 62 H VBG pH 7.46 H VBG pCO2 32.0 L VBG HCO3 22.8 VBG Total CO2 23.8 VBG O2 Sat (Calc) 95.8 H VBG Base Excess -0.3 L VBG Potassium 3.0 L Glucose 130 H Lactate 1.7 FiO2 21.0 Crit Value Called To Crit Value Called By Blood Gas Notified Time Sodium 131 L 131.0 L Potassium 3.1 L Chloride 98 100.0 Carbon Dioxide 25 Anion Gap 11 BUN 34 H Creatinine 1.5 Est GFR ( Amer) 55 Est GFR (Non-Af Amer) 46 POC Glucose (mg/dL) 138 H Random Glucose 132 H Calcium 8.5 Total Bilirubin 0.9 AST 63 H ALT 47 Alkaline Phosphatase 61 Total Protein 5.3 L Albumin 2.8 L Globulin 2.5 Albumin/Globulin Ratio 1.1 Prostate Specific Ag Venous Blood Potassium 3.0 L Urine Color Urine Appearance Urine pH Ur Specific [place] Urine Protein Urine Glucose (UA) Urine Ketones Urine Blood Urine Nitrate Urine Bilirubin Urine Urobilinogen Ur Leukocyte Esterase Urine RBC Urine WBC Urine Bacteria 11/28/18 11/28/18 11/28/18 07:00 07:00 07:00 WBC 14.6 H D RBC 3.91 Hgb 11.9 L Hct 35.6 L MCV 91.0 MCH 30.4 MCHC 33.4 RDW 13.1 Plt Count 69 L MPV 10.3 Neut % (Auto) 90.6 H Lymph % (Auto) 2.[address] [place] % (Auto) 7.1 H Eos % (Auto) 0.0 L Baso % (Auto) 0.0 Lymph # (Auto) 0.[address] # (Auto) 1.0 H Eos # (Auto) 0.0 Baso # (Auto) 0.00 Absolute Neuts (auto) 13.23 H Neutrophils % (Manual) Band Neutrophils % Lymphocytes % (Manual) Monocytes % (Manual) Toxic Granulation Platelet Evaluation pO2 VBG pH VBG pCO2 VBG HCO3 VBG Total CO2 VBG O2 Sat (Calc) VBG Base Excess VBG Potassium Glucose Lactate FiO2 Crit Value Called To Crit Value Called By Blood Gas Notified Time Sodium 135 Potassium 4.3 Chloride 102 Carbon Dioxide 25 Anion Gap 12 BUN 36 H Creatinine 1.6 H Est GFR ( Amer) 51 Est GFR (Non-Af Amer) 42 POC Glucose (mg/dL) Random Glucose 123 H Calcium 8.3 L Total Bilirubin 0.6 AST 62 H ALT 43 Alkaline Phosphatase 55 Total Protein 5.1 L Albumin 2.5 L Globulin 2.6 Albumin/Globulin Ratio 1.0 L Prostate Specific Ag 54.2 H Venous Blood Potassium Urine Color Urine Appearance Urine pH Ur Specific [place] Urine Protein Urine Glucose (UA) Urine Ketones Urine Blood Urine Nitrate Urine Bilirubin Urine Urobilinogen Ur Leukocyte Esterase Urine RBC Urine WBC Urine Bacteria Attending/Attestation - Attestation I have personally seen and examined this patient.: Yes I have fully participated in the care of the patient.: Yes I have reviewed all pertinent clinical information: Yes
[2018-11-28 12:50] LABS: HEPATITIS B SURFACE AG Negative (NEGATIVE)
[2018-11-28 12:56] LABS: HEPATITIS A IGM NEGATIVE (NEGATIVE); HEPATITIS B CORE AB NEGATIVE (NEGATIVE)
[2018-11-28 13:07] LABS: HEPATITIS C ANTIBODY NEGATIVE (NEGATIVE)
--- NOTE | 2018-11-28 15:20 | PCM.URO ---
Urology Progress Note - Objective Lab Studies: Reviewed (full note to be dictated cysto to follow new barraza inserted) Lab Results Last 24 Hours: Laboratory Results - last 24 hr 11/27/18 11/27/18 11/27/18 15:35 22:00 22:30 WBC RBC Hgb Hct MCV MCH MCHC RDW Plt Count MPV Neut % (Auto) Lymph % (Auto) [place] % (Auto) Eos % (Auto) Baso % (Auto) Lymph # (Auto) [place] # (Auto) Eos # (Auto) Baso # (Auto) Absolute Neuts (auto) Neutrophils % (Manual) Band Neutrophils % Lymphocytes % (Manual) Monocytes % (Manual) Toxic Granulation Platelet Evaluation pO2 60 H VBG pH 7.50 H VBG pCO2 28.0 L VBG HCO3 21.8 VBG Total CO2 22.7 VBG O2 Sat (Calc) 96.0 H VBG Base Excess -0.2 L VBG Potassium 3.5 L Sodium 131.0 L Chloride 97.0 L Glucose 117 H Lactate 3.1 H FiO2 21.0 Crit Value Called To Soumya mercer Crit Value Called By Etq Blood Gas Notified Time 2216 Potassium Carbon Dioxide Anion Gap BUN Creatinine Est GFR ( Amer) Est GFR (Non-Af Amer) POC Glucose (mg/dL) 117 H Random Glucose Calcium Total Bilirubin AST ALT Alkaline Phosphatase Total Protein Albumin Globulin Albumin/Globulin Ratio Prostate Specific Ag Venous Blood Potassium 3.5 L Urine Color Yellow Urine Appearance Cloudy Urine pH 6.0 Ur Specific [place] 1.020 Urine Protein 100 H Urine Glucose (UA) Negative Urine Ketones Trace H Urine Blood Large H Urine Nitrate Positive H Urine Bilirubin Negative Urine Urobilinogen 0.2 Ur Leukocyte Esterase Large H Urine RBC 15 - 20 H Urine WBC Tntc H Urine Bacteria Many Hepatitis A IgM Ab Hep Bs Antigen Hep B Core IgM Ab Hepatitis C Antibody 11/27/18 11/27/18 11/28/18 23:35 23:35 01:28 WBC 7.3 D RBC 4.02 Hgb 12.3 L Hct 36.3 L MCV 90.3 MCH 30.6 MCHC 33.9 RDW 12.8 Plt Count 71 L MPV 10.1 Neut % (Auto) 93.0 H Lymph % (Auto) 2.9 L [place] % (Auto) 4.1 Eos % (Auto) 0.0 L Baso % (Auto) 0.0 Lymph # (Auto) 0.2 L [place] # (Auto) 0.3 Eos # (Auto) 0.0 Baso # (Auto) 0.00 Absolute Neuts (auto) 6.76 H Neutrophils % (Manual) 79 H Band Neutrophils % 11 H* Lymphocytes % (Manual) 4 L Monocytes % (Manual) 6 Toxic Granulation Slight Platelet Evaluation Low pO2 62 H VBG pH 7.46 H VBG pCO2 32.0 L VBG HCO3 22.8 VBG Total CO2 23.8 VBG O2 Sat (Calc) 95.8 H VBG Base Excess -0.3 L VBG Potassium 3.0 L Sodium 131 L 131.0 L Chloride 98 100.0 Glucose 130 H Lactate 1.7 FiO2 21.0 Crit Value Called To Crit Value Called By Blood Gas Notified Time Potassium 3.1 L Carbon Dioxide 25 Anion Gap 11 BUN 34 H Creatinine 1.5 Est GFR ( Amer) 55 Est GFR (Non-Af Amer) 46 POC Glucose (mg/dL) Random Glucose 132 H Calcium 8.5 Total Bilirubin 0.9 AST 63 H ALT 47 Alkaline Phosphatase 61 Total Protein 5.3 L Albumin 2.8 L Globulin 2.5 Albumin/Globulin Ratio 1.1 Prostate Specific Ag Venous Blood Potassium 3.0 L Urine Color Urine Appearance Urine pH Ur Specific [place] Urine Protein Urine Glucose (UA) Urine Ketones Urine Blood Urine Nitrate Urine Bilirubin Urine Urobilinogen Ur Leukocyte Esterase Urine RBC Urine WBC Urine Bacteria Hepatitis A IgM Ab Hep Bs Antigen Hep B Core IgM Ab Hepatitis C Antibody 11/28/18 11/28/18 11/28/18 04:47 07:00 07:00 WBC 14.6 H D RBC 3.91 Hgb 11.9 L Hct 35.6 L MCV 91.0 MCH 30.4 MCHC 33.4 RDW 13.1 Plt Count 69 L MPV 10.3 Neut % (Auto) 90.6 H Lymph % (Auto) 2.3 L [place] % (Auto) 7.1 H Eos % (Auto) 0.0 L Baso % (Auto) 0.0 Lymph # (Auto) 0.3 L [place] # (Auto) 1.0 H Eos # (Auto) 0.0 Baso # (Auto) 0.00 Absolute Neuts (auto) 13.23 H Neutrophils % (Manual) Band Neutrophils % Lymphocytes % (Manual) Monocytes % (Manual) Toxic Granulation Platelet Evaluation pO2 VBG pH VBG pCO2 VBG HCO3 VBG Total CO2 VBG O2 Sat (Calc) VBG Base Excess VBG Potassium Sodium 135 Chloride 102 Glucose Lactate FiO2 Crit Value Called To Crit Value Called By Blood Gas Notified Time Potassium 4.3 Carbon Dioxide 25 Anion Gap 12 BUN 36 H Creatinine 1.6 H Est GFR ( Amer) 51 Est GFR (Non-Af Amer) 42 POC Glucose (mg/dL) 138 H Random Glucose 123 H Calcium 8.3 L Total Bilirubin 0.6 AST 62 H ALT 43 Alkaline Phosphatase 55 Total Protein 5.1 L Albumin 2.5 L Globulin 2.6 Albumin/Globulin Ratio 1.0 L Prostate Specific Ag Venous Blood Potassium Urine Color Urine Appearance Urine pH Ur Specific [place] Urine Protein Urine Glucose (UA) Urine Ketones Urine Blood Urine Nitrate Urine Bilirubin Urine Urobilinogen Ur Leukocyte Esterase Urine RBC Urine WBC Urine Bacteria Hepatitis A IgM Ab Hep Bs Antigen Hep B Core IgM Ab Hepatitis C Antibody 11/28/18 11/28/18 07:00 07:00 WBC RBC Hgb Hct MCV MCH MCHC RDW Plt Count MPV Neut % (Auto) Lymph % (Auto) [place] % (Auto) Eos % (Auto) Baso % (Auto) Lymph # (Auto) [place] # (Auto) Eos # (Auto) Baso # (Auto) Absolute Neuts (auto) Neutrophils % (Manual) Band Neutrophils % Lymphocytes % (Manual) Monocytes % (Manual) Toxic Granulation Platelet Evaluation pO2 VBG pH VBG pCO2 VBG HCO3 VBG Total CO2 VBG O2 Sat (Calc) VBG Base Excess VBG Potassium Sodium Chloride Glucose Lactate FiO2 Crit Value Called To Crit Value Called By Blood Gas Notified Time Potassium Carbon Dioxide Anion Gap BUN Creatinine Est GFR ( Amer) Est GFR (Non-Af Amer) POC Glucose (mg/dL) Random Glucose Calcium Total Bilirubin AST ALT Alkaline Phosphatase Total Protein Albumin Globulin Albumin/Globulin Ratio Prostate Specific Ag 54.2 H Venous Blood Potassium Urine Color Urine Appearance Urine pH Ur Specific [place] Urine Protein Urine Glucose (UA) Urine Ketones Urine Blood Urine Nitrate Urine Bilirubin Urine Urobilinogen Ur Leukocyte Esterase Urine RBC Urine WBC Urine Bacteria Hepatitis A IgM Ab Negative Hep Bs Antigen Negative Hep B Core IgM Ab Negative Hepatitis C Antibody Negative Intake & Output: Intake & Output 11/27/18 11/28/18 11/28/18 18:59 06:59 18:59 Output Total 150 Balance -150 Weight 185 lb 185 lb Output: Urine 150 Urethral (Barraza) 150 Other: Voiding Method Indwelling Catheter # Bowel Movements 1 Vital Signs: Vital Signs - 24 hr 11/27/18 11/27/18 11/27/18 17:14 21:30 21:46 Temperature 98.2 F 103 F H Pulse Rate 80 Respiratory 18 18 Rate Blood Pressure 129/71 O2 Sat by Pulse 98 Oximetry 11/27/18 11/27/18 11/27/18 22:00 22:46 22:56 Temperature 103 F H 99.5 F 99.5 F Pulse Rate 113 H 106 H Respiratory 20 20 Rate Blood Pressure 160/79 H 152/71 H O2 Sat by Pulse 95 97 Oximetry 11/28/18 11/28/18 11/28/18 00:00 02:00 08:23 Temperature 97.7 F 97.8 F Pulse Rate 94 H 83 76 Respiratory 18 20 Rate Blood Pressure 96/58 L 101/62 O2 Sat by Pulse 95 94 L Oximetry
--- NOTE | 2018-11-28 15:29 | HP ---
DATE OF EXAM: 11/28/2018 HISTORY OF PRESENT ILLNESS: A 73-year-old white male with history of BPH in the past and mild hypertension. The patient over the last 3 to 4 days had some episodes of frequency in urination and some blood in urine. 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 The patient refused to come to the emergency room case was discussed. Over the weekend, the patient was urinating blood, but had no recurrence of his near syncopal episode. The patient did not have fever or chills, however, was seen in the office, suddenly confused and disoriented with hematuria, polyuria, and bacteruria, was sent to the emergency room. Subsequently, he was admitted with an extremely large prostate, bladder incontinence, bilateral hydronephrosis, elevated white count and spike to 103.4 that night with shaking chills and some mild diarrhea. PAST SURGICAL HISTORY: The patient has no other past surgical history. SOCIAL HISTORY: The patient is a nonsmoker and nondrinker. He has no recent travel history, however, travels to [place] during almost every summer. REVIEW OF SYSTEMS CARDIAC: Negative for palpitations, chest pain or diaphoresis. RESPIRATORY: Negative for cough, sputum production or shortness of breath. GASTROINTESTINAL: Positive for diarrhea and without blood. GENITOURINARY: Positive for dysuria, hematuria, frequency, urgency, and suprapubic tenderness and pain without back pain. PHYSICAL EXAMINATION GENERAL: Shows a well developed, thin white male, complaining of some 5/10 pain in the suprapubic area. CHEST: Clear to auscultation. HEART: Regular sinus rhythm. ABDOMEN: Soft. Bowel sounds are normoactive. No masses palpable. There is some distension. There is some tenderness on palpation on the suprapubic area. EXTREMITIES: Without cyanosis, clubbing or edema. LABORATORY DATA: Revealed elevated BUN and creatinine of 36 and 1.6. White count of 14.6, hematuria, bacteruria, and polyuria; platelet count of 69,000. IMPRESSION: Obstructive uropathy, urosepsis, bilateral hydronephrosis in a 73-year-old white male with recent episode of syncope. Ryne Jones MD
--- NOTE | 2018-11-28 16:05 | CP.PCM.APN ---
Subjective - Date & Time of Evaluation Date of Evaluation: 11/28/18 Time of Evaluation: 01:00 - Subjective Subjective: Pt. seen and examined in bed, denied abdominal pain, denied fever, chills, shortness of breath. Just ate lunch, tolerated well. Objective - Vital Signs/Intake and Output Vital Signs (last 24 hours): Temp Pulse Resp BP Pulse Ox 97.8 F 76 20 101/62 94 L 11/28/18 08:23 11/28/18 08:23 11/28/18 08:23 11/28/18 08:23 11/28/18 08:23 Intake and Output: 11/28/18 11/28/18 06:59 18:59 Output Total 150 Balance -150 - Medications Medications: Current Medications Acetaminophen (Tylenol 325mg Tab) 650 mg PO Q6H PRN PRN Reason: Fever >100.4 F Sodium Chloride (Sodium Chloride 0.9%) 1,000 mls @ 100 mls/hr IV .Q10H [facility] Last Admin: 11/27/18 23:41 Dose: 100 mls/hr Ceftriaxone Sodium (Rocephin 1 Gram Ivpb) 1 gm in 100 mls @ 100 mls/hr IVPB DAILY [facility]; Protocol Stop: 12/05/18 10:01 Last Admin: 11/28/18 09:39 Dose: 100 mls/hr Oxycodone/Acetaminophen (Percocet 5/325 Mg Tab) 1 tab PO Q6H PRN PRN Reason: Pain, moderate (4-7) Stop: 12/01/18 09:15 Last Admin: 11/28/18 09:38 Dose: 1 tab Tamsulosin HCl (Flomax) 0.4 mg PO BID [facility] Last Admin: 11/28/18 09:39 Dose: 0.4 mg Tramadol HCl (Ultram) 50 mg PO Q6 PRN PRN Reason: Pain, moderate (4-7) Last Admin: 11/28/18 05:04 Dose: 50 mg - Labs Labs: 11/28/18 07:00 11/28/18 07:00 - Constitutional Appears: Well, Non-toxic - Head Exam Head Exam: NORMOCEPHALIC - Eye Exam Eye Exam: Normal appearance - ENT Exam ENT Exam: Mucous Membranes Moist, Normal Exam - Neck Exam Neck Exam: Full ROM - Respiratory Exam Respiratory Exam: Clear to Ausculation Bilateral - Cardiovascular Exam Cardiovascular Exam: REGULAR RHYTHM, +S1, +S2 - GI/Abdominal Exam GI & Abdominal Exam: Soft, Normal Bowel Sounds - Rectal Exam Rectal Exam: Deferred - Extremities Exam Extremities Exam: Full ROM - Back Exam Back Exam: NORMAL INSPECTION - Neurological Exam Neurological Exam: Alert, Awake, Normal Gait, Oriented x3 - Psychiatric Exam Psychiatric exam: Normal Affect, Normal Mood - Skin Skin Exam: Dry, Intact, Normal Color, Warm Assessment and Plan - Assessment and Plan (Free Text) Assessment: No Known Allergies Allergy (Verified 11/27/18 19:57) Urine Color Yellow (YELLOW) 11/27/18 15:35 Urine Appearance Cloudy (CLEAR) 11/27/18 15:35 Urine pH 6.0 (4.7-8.0) 11/27/18 15:35 Ur Specific [place] 1.020 (1.005-1.035) 11/27/18 15:35 Urine Protein 100 mg/dL (<30 mg/dL) H 11/27/18 15:35 Urine Glucose (UA) Negative mg/dL (NEGATIVE) 11/27/18 15:35 Urine Ketones Trace mg/dL (NEGATIVE) H 11/27/18 15:35 Urine Blood Large (NEGATIVE) H 11/27/18 15:35 Urine Nitrate Positive (NEGATIVE) H 11/27/18 15:35 Urine Bilirubin Negative (NEGATIVE) 11/27/18 15:35 Urine Urobilinogen 0.2 E.U./dL (<1 E.U./dL) 11/27/18 15:35 Ur Leukocyte Esterase Large [place]/uL (NEGATIVE) H 11/27/18 15:35 Urine RBC 15 - 20 /hpf (0-2) H 11/27/18 15:35 Urine WBC Tntc /hpf (0-6) H 11/27/18 15:35 Urine Bacteria Many /hpf (NONE) 11/27/18 15:35 Assessment: 73 year old male, with past medical history of AAA, presents to the ED for evaluation of polyuria since last . Patient states he has been experiencing increased urination throughout the day, associated with mild abdominal pain, admitted after code sepsis, currently with I.D consulted. Plan: 1. Sepsis r/t UTI - continue IV antibx per I.D, urine cx final I.D, sens. pending. 2. Urinary retention Resolved, s/p barraza insertion, most likely r/t enlarged prostate, poss. cysto planned per urology 3. Hematuria llikely r/t UTI, r/t trauma from barraza insertion monitor, trend H/H. Will continue to monitor and follow closely.
[2018-11-28 16:23] LABS: HEMOGLOBIN 10.8 g/dL (14.0-18.0); MEAN CELL VOLUME 91.7 fl (80.0-105.0); MEAN CORPUSCULAR HEMOGLOBIN 30.9 pg (25.0-35.0); MEAN CORPUSCULAR HGB CONC 33.8 g/dl (31.0-37.0); MEAN PLATELET VOLUME 10.2 fl (7.0-11.0); RBC 3.49 10^6/uL (3.5-6.1); RED CELL DISTRIBUTION WIDTH 13.1 % (11.5-14.5); WHITE BLOOD COUNT 9.7 10^3/uL (4.5-11.0)
[2018-11-28] MEDS ORDERED: Sodium Chloride 0.9% 500 ML IV STA (17:04)
[2018-11-28] MEDS ORDERED: Benzocaine/Menthol (Cepacol) Lozenge MT STA (23:07)
[2018-11-29 06:43] LABS: BASO # 0.01 K/mm3 (0.0-2.0); BASO % 0.2 % (0.0-3.0); EOS # 0.1 (0.0-0.7); EOS % 1.3 % (1.5-5.0); HEMOGLOBIN 11.7 g/dL (14.0-18.0); LYMPH # 0.6 (1.2-3.4); LYMPH % 9.4 % (22.0-35.0); MEAN CELL VOLUME 93.2 fl (80.0-105.0); MEAN CORPUSCULAR HEMOGLOBIN 30.7 pg (25.0-35.0); MEAN PLATELET VOLUME 11.4 fl (7.0-11.0); MONO # 0.6 (0.1-0.6); RBC 3.81 10^6/uL (3.5-6.1); RED CELL DISTRIBUTION WIDTH 13.5 % (11.5-14.5); WHITE BLOOD COUNT 6.4 10^3/uL (4.5-11.0)
[2018-11-29 06:46] LABS: ALB/GLOB RATIO 0.9 (1.1-1.8); ALBUMIN 2.3 g/dL (3.0-4.8); ALT/SGPT 36 U/L (7-56); AST/SGOT 39 U/L (17-59); BLOOD UREA NITROGEN 27 mg/dL (7-21); CALCIUM 8.1 mg/dL (8.4-10.5); GFR NON-AFRICAN AMERICAN 59
[2018-11-29 07:44] VITALS: BP 111/65; RESP 20; TEMP 98.8; O2SAT 94
--- NOTE | 2018-11-29 10:15 | PCM.URO ---
Urology Progress Note - Subjective Abdominal Pain: Yes (pt clear for discharge home/full note dictated) - Objective Lab Results Last 24 Hours: Laboratory Results - last 24 hr 11/28/18 11/28/18 11/29/18 07:00 16:20 05:01 WBC 9.7 D 6.4 D RBC 3.49 L 3.81 Hgb 10.8 L 11.7 L Hct 32.0 L 35.5 L MCV 91.7 93.2 MCH 30.9 30.7 MCHC 33.8 33.0 RDW 13.1 13.5 Plt Count 73 L 84 L MPV 10.2 11.4 H Neut % (Auto) 79.1 H Lymph % (Auto) 9.4 L Avery % (Auto) 10.0 H Eos % (Auto) 1.3 L Baso % (Auto) 0.2 Lymph # (Auto) 0.6 L A[place] # (Auto) 0.6 Eos # (Auto) 0.1 Baso # (Auto) 0.01 Absolute Neuts (auto) 5.07 Sodium Potassium Chloride Carbon Dioxide Anion Gap BUN Creatinine Est GFR ( Amer) Est GFR (Non-Af Amer) Random Glucose Calcium Total Bilirubin AST ALT Alkaline Phosphatase Total Protein Albumin Globulin Albumin/Globulin Ratio Hepatitis A IgM Ab Negative Hep Bs Antigen Negative Hep B Core IgM Ab Negative Hepatitis C Antibody Negative 11/29/18 05:01 WBC RBC Hgb Hct MCV MCH MCHC RDW Plt Count MPV Neut % (Auto) Lymph % (Auto) Avery % (Auto) Eos % (Auto) Baso % (Auto) Lymph # (Auto) Avery # (Auto) Eos # (Auto) Baso # (Auto) Absolute Neuts (auto) Sodium 136 Potassium 3.7 Chloride 103 Carbon Dioxide 28 Anion Gap 8 L BUN 27 H Creatinine 1.2 Est GFR ( Amer) > 60 Est GFR (Non-Af Amer) 59 Random Glucose 90 Calcium 8.1 L Total Bilirubin 0.3 AST 39 ALT 36 Alkaline Phosphatase 55 Total Protein 4.9 L Albumin 2.3 L Globulin 2.6 Albumin/Globulin Ratio 0.9 L Hepatitis A IgM Ab Hep Bs Antigen Hep B Core IgM Ab Hepatitis C Antibody Vital Signs: Vital Signs - 24 hr 11/28/18 11/28/18 11/28/18 14:00 18:00 19:00 Temperature 97.8 F Pulse Rate 64 60 64 Respiratory 16 Rate Blood Pressure 103/56 L O2 Sat by Pulse 98 Oximetry 11/28/18 11/29/18 11/29/18 22:00 02:00 06:00 Temperature Pulse Rate 65 64 68 Respiratory Rate Blood Pressure O2 Sat by Pulse Oximetry 11/29/18 07:43 Temperature 98.8 F Pulse Rate 74 Respiratory 20 Rate Blood Pressure 111/65 O2 Sat by Pulse 94 L Oximetry
[2018-11-29] MEDS: cefTRIAXone 1 gm 1 GM/100 ML BAG IVPB SCH (10:21)
[2018-11-29] MEDS: Sodium Chloride 0.9% 1,000 ML IV SCH (10:23)
--- NOTE | 2018-11-29 11:38 | PN ---
DATE: 11/29/2018 SUBJECTIVE: A 73-year-old white male admitted hospital with obstructive uropathy most likely prostatitis, urinary tract infection, E. coli growing in the urine. Blood cultures x2 so far negative. The patient had spiked to 103.4. He is afebrile, now white count was elevated with a left shift, bandemia is now back to normal. The patient has had a fully reinsured by Dr. Zaman. He is n.p.o. for possible Cysto today. He had obstructive uropathy with bilateral hydronephrosis, disorientation and confusion, change in mental status secondary to his urinary tract infection. So far, he is responding to antibiotics. He was seen in consultation by Dr. Villarreal. He is currently on Flomax twice a day. Pain medication as needed, hydration, tramadol for pain and ceftriaxone. The patient will be discussed possible prostatectomy versus screen laser versus other treatments of his urinary tract obstruction with Dr. Zaman after his Cysto. Plan is to continue IV antibiotics and switch to the p.o. alternative and upon discharge. Ryne Jones MD
[2018-11-29 13:01] VITALS: PULSE 62
--- NOTE | 2018-11-29 13:14 | CP.PCM.PCO ---
Physician Communication Note - Physician Communication Note Physician Communication Note: pt. will need visiting nurses for home PT, recommended by PT, CM made aware
--- NOTE | 2018-11-29 13:32 | CP.PCM.PN ---
<Edgard Snyder - Last Filed: 11/29/18 13:29> Subjective - Date & Time of Evaluation Date of Evaluation: 11/29/18 Time of Evaluation: 08:30 - Subjective Subjective: Edgard Snyder D.O. PGY-3, Internal Medicine Resident, Infectious Disease Progress Note 73-year-old male with a past medical history of AAA who presents for complaints of urinary frequency. Infectious disease consultation was requested for sepsis. Patient was seen and examined at bedside along with Dr. Jones. Patient having some discomfort 2/2 barraza. Somewhat anxious about cysto today. Eager to get better. Objective - Vital Signs/Intake and Output Vital Signs (last 24 hours): Temp Pulse Resp BP Pulse Ox 98.8 F 62 20 111/65 94 L 11/29/18 07:43 11/29/18 10:00 11/29/18 07:43 11/29/18 07:43 11/29/18 07:43 - Medications Medications: Current Medications Acetaminophen (Tylenol 325mg Tab) 650 mg PO Q6H PRN PRN Reason: Fever >100.4 F Ciprofloxacin (Cipro) 500 mg PO Q12 [facility]; Protocol Stop: 12/10/18 10:01 Sodium Chloride (Sodium Chloride 0.9%) 1,000 mls @ 100 mls/hr IV .Q10H [facility] Last Admin: 11/29/18 10:23 Dose: 100 mls/hr Ceftriaxone Sodium (Rocephin 1 Gram Ivpb) 1 gm in 100 mls @ 100 mls/hr IVPB DAILY [facility]; Protocol Stop: 12/05/18 10:01 Last Admin: 11/29/18 10:21 Dose: 100 mls/hr Oxycodone/Acetaminophen (Percocet 5/325 Mg Tab) 1 tab PO Q6H PRN PRN Reason: Pain, moderate (4-7) Stop: 12/01/18 09:15 Last Admin: 11/28/18 09:38 Dose: 1 tab Tamsulosin HCl (Flomax) 0.4 mg PO BID [facility] Last Admin: 11/29/18 10:21 Dose: 0.4 mg Tramadol HCl (Ultram) 50 mg PO Q6 PRN PRN Reason: Pain, moderate (4-7) Last Admin: 11/28/18 05:04 Dose: 50 mg - Labs Labs: 11/29/18 05:01 11/29/18 05:01 - Constitutional Appears: Non-toxic, No Acute Distress - Head Exam Head Exam: ATRAUMATIC, NORMOCEPHALIC - Eye Exam Eye Exam: EOMI. absent: Scleral icterus - ENT Exam ENT Exam: Mucous Membranes Moist, Normal Oropharynx - Neck Exam Neck exam: Positive for: Normal Inspection - Respiratory Exam Respiratory Exam: Clear to Auscultation Bilateral. absent: Rales, Rhonchi, Wheezes - Cardiovascular Exam Cardiovascular Exam: RRR, +S1, +S2. absent: Gallop, Rubs - GI/Abdominal Exam GI & Abdominal Exam: Normal Bowel Sounds, Soft. absent: Tenderness - Exam Additional comments: suprapubic tenderness, barraza in place with clear yellow urine - Neurological Exam Neurological exam: Alert, Oriented x3 - Psychiatric Exam Psychiatric exam: Normal Affect, Normal Mood - Skin Skin Exam: Dry, Warm Assessment and Plan - Assessment and Plan (Free Text) Assessment: 73-year-old male with a past medical history of AAA who presents for complaints of urinary frequency. Infectious disease consultation was requested for sepsis. Plan: Sepsis with prostatitis Urinary retention Urinary frequency Enlarged prostate AAA Defervesed Leukocytosis resolved Continue ceftriaxone day 2 Blood cultures negative 2/2 day 1 Urine cultures grew K. oxytoca sensitive For cysto with uro today Once stable for discharge will need 21 day course of abx for prostatis as well as f/u with urology Discussed with Dr. Jones at bedside We will follow with you Patient was seen and examined and case to be discussed with attending physician Thank you for the pleasure participating in the care of this interesting patient <Otf Villarreal - Last Filed: 11/29/18 18:09> Objective - Vital Signs/Intake and Output Vital Signs (last 24 hours): Temp Pulse Resp BP Pulse Ox 98.8 F 62 20 111/65 94 L 11/29/18 07:43 11/29/18 10:00 11/29/18 07:43 11/29/18 07:43 11/29/18 07:43 - Labs Labs: 11/29/18 05:01 11/29/18 05:01 Attending/Attestation - Attestation I have personally seen and examined this patient.: Yes I have fully participated in the care of the patient.: Yes I have reviewed all pertinent clinical information, including history, physical exam and plan: Yes
--- NOTE | 2018-11-29 19:29 | CON ---
DATE: 11/28/2018 UROLOGY CONSULTATION This is a consultation for gross hematuria and urinary retention. HISTORY OF PRESENT ILLNESS: Mr. 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 He has been following with his medical doctor for a routine followup on Flomax. He presents now in urinary retention. I spoke to the ER yesterday and for one, they inserted a Cole catheter and drained about a few hundred mL of urine and then there is a requested consult for management of his enlarged prostate. But now the catheter was hurting him too much, no urine was coming out. Perhaps the catheter was dislodged or the like. But in the meantime, Urology was consulted regarding further recommendations. See below addendum and procedure note. I inserted a new Cole catheter with a large amount of effort. So we removed the previous catheter and they were not able to insert a new catheter. The patient has a very tight phimosis, but we were able to insert a new Cole catheter, see the separately dictated procedure. PAST MEDICAL HISTORY/SURGICAL HISTORY: As listed on the chart. No history of an IN or CVA. 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 MEDICATIONS: See the chart. ALLERGIES: SEE THE CHART. PHYSICAL EXAMINATION: GENERAL: A well-nourished male actually in a moderate amount of discomfort. He is lying in a bed fairly uncomfortable. The remainder of the physical exam is also significant for he has a very tight phimosis, but we were able to get to the meatus. PROCEDURE: See the separately dictated procedure note. DIAGNOSES: Urinary retention, gross hematuria and a very tight phimosis. ASSESSMENT: In summary, a very pleasant, noncompliant, 73-year-old gentleman who has been in retention actually. Further history reports that he was going to the bathroom he said "too good," where he was going every 10 minutes. Basically that suggested there was an overflow incontinence from urinary retention. For now, he has gross hematuria. So, he is a 73-year-old gentleman with gross hematuria, urinary retention, enlarged prostate and a tight phimosis. Today, we inserted the new Cole catheter via the urethra. . In fact, we came here now just to insert the Cole catheter. He was fairly uncomfortable, but that is because the nursing staff did not know how to correctly and therefore were unable to insert a Cole catheter. PLAN: The plan is as follows; he now has a new catheter. It is draining. There is some blood tinged urine. I suspect this will clear up. The Urology plan is as follows; 1. Maintain the antibiotics. 2. Cole to straight drainage. 3. Continue Flomax. 4. Further plans to be discussed. Whether we do a cystoscopy or whether we just keep the patient with the Cole catheter temporarily, will remain to see, depends on how the patient does clinically. If the urine clears most likely we can make an outpatient recommendation and then further plans can follow. Eduardo Zaman MD
== END 2018-11-29 15:57 | disposition home or self-care (01) | DRG 872 ==
LOC: ED 12:22 → ERH 17:04 → 3RNO 18:20
PROVIDERS: ADMIT Internal Medicine; ATTEND Internal Medicine
DX: A41.9 Sepsis, unspecified organism (principal); N13.6 Pyonephrosis; N41.9 Inflammatory disease of prostate, unspecified; N40.1 Benign prostatic hyperplasia with lower urinary tract symptoms; N39.498 Other specified urinary incontinence; R35.0 Frequency of micturition; R33.8 Other retention of urine; R31.0 Gross hematuria; I71.4 Abdominal aortic aneurysm, without rupture; I10 Essential (primary) hypertension; N47.1 Phimosis; Z91.19 Patient's noncompliance with other medical treatment and regimen